=== PATIENT | male | born 1990 | race Hispanic/Latino ===

== ENCOUNTER 2018-03-20 21:18 | Emergency (ER) | payer SELFPAY ==
[2018-03-20] MEDS ORDERED: Acetaminophen 500 MG TAB ONE (23:31)
== END 2018-03-20 23:36 | disposition home or self-care (01) ==
LOC: ERS 21:18
DX: S00.93XA Contusion of unspecified part of head, initial encounter (principal); S00.81XA Abrasion of other part of head, initial encounter; V00.131A Fall from skateboard, initial encounter; Y93.21 Activity, ice skating
CPT/HCPCS: 99283

== ENCOUNTER 2021-12-27 20:43 | Emergency (ER) | payer SELFPAY ==
[2021-12-27] MEDS ORDERED: hydrOXYzine 25 MG TAB PO SCH (22:45)
[2021-12-27] MEDS ORDERED: hydrOXYzine 25 MG TAB ONE (22:56)
== END 2021-12-27 22:59 | disposition home or self-care (01) ==
LOC: ERS 20:43
DX: T63.621A Toxic effect of contact with other jellyfish, accidental (unintentional), initial encounter (principal); F41.9 Anxiety disorder, unspecified
CPT/HCPCS: 99283